=== PATIENT | female | born 1990 | race Caucasian/White ===

== ENCOUNTER 2020-12-28 17:57 | Emergency (ER) | payer BC ==
[~2020-12-28] VITALS: Ht 149.9 cm; Wt 73.5 kg
[2020-12-28 18:01] VITALS: Ht 149.9 cm; Wt 73.5 kg
[2020-12-28] MEDS ORDERED: VOLTAREN100 GM TOP (19:06)
[2020-12-28] MEDS ORDERED: MOT800 PO (19:06)
[2020-12-28 19:25] VITALS: BP 140/91
== END 2020-12-28 19:25 | disposition home or self-care (01) ==
LOC: ED 17:57
DX: S46.912A Strain of unspecified muscle, fascia and tendon at shoulder and upper arm level, left arm, initial encounter (principal); J45.909 Unspecified asthma, uncomplicated; X58.XXXA Exposure to other specified factors, initial encounter; Y93.89 Activity, other specified; Y92.89 Other specified places as the place of occurrence of the external cause; Y99.8 Other external cause status
CPT/HCPCS: J1885